=== PATIENT | female | born 1970 | race Caucasian/White ===

== ENCOUNTER → 2017-04-10 | Outpatient (CLI) | payer MEDICARE, OTHER ==
[2016-03-05 12:18] VITALS: BP 146/84
[~2017-04-10] MED LIST: ALBU2.5V14 NEB; AMLO5TAB2 PO; CARB200T PO; CLON0.5T PO; CLON1TAB PO; DIPH25CA58 IV; FERR-26 PO; FLUO40CA9 PO; FLUT12AE IH; HYDR25TA9 PO; IPRA3AMP IH; LEVO500T8 PO; LISI20TA PO; LOPE2TAB27 PO; MAGN64TA6 PO; MERO1VIA IV; METF500T PO; MONT10TA9 PO; MULT-246 PO; NAPR-683 PO; OLAN5TAB9 PO; PHEN177S52 MM; POTASSIUM CHLO10 MEQ PO; SIMV20TA3 PO; SUMA50TA3 PO; VANC1.752 IV; VENTOLIN HFA18 GM INH
--- NOTE | 2017-04-10 14:39 | RAD ---
Ultrasound-guided right thyroid biopsy, 03/12/2017: History: Multinodular thyroid gland An outside thyroid ultrasound exam demonstrated a heterogeneous multinodular gland. We targeted the dominant, faintly hypoechoic nodule seen anterolaterally in the upper pole of the right lobe of the gland on the outside study. Biopsy of the smaller nodules would be problematic due to their size and the thickness of this patient's neck. Depending on the results of this procedure, sonographic surveillance is again suggested to established stability of these nodules. Under local anesthesia, aseptic conditions and sonographic guidance a 25-gauge needle was passed into this hypoechoic area via an anteromedial approach. 4 separate aspirates were obtained in this manner. The pathology results are pending. The patient tolerated the procedure well and left the department in good condition.
--- NOTE | 2017-04-14 13:38 | PATHOLOGY ---
CYTOPATHOLOGY REPORT CLINICAL HISTORY: Thyroid nodule SPECIMEN(S) RECEIVED: A.Fine needle aspiration, Right thyroid nodule FINAL DIAGNOSIS: Right thyroid nodule fine needle aspiration, smears and cell block: - [place] category: Benign. - Clusters of follicular epithelial cells, hemosiderin laden macrophages, colloid, and blood identified. COMMENT: The findings are consistent with an adenomatous nodule. (JPM:mgr; 04/14/2017) PATHOLOGIST: Ricky Broussard M.D. REPORT ELECTRONICALLY SIGNED BY: Ricky Broussard M.D. DATE/TIME: 04/14/2017 13:36 GROSS PATHOLOGY: A. Fine needle aspiration, Right thyroid nodule: The specimen is labeled "Sherly Geronimo" and consists of four fixed slides, three air dried slides, four H and E slides. Thirty mL of clear cloudy pink fluid in fixative from the needle rinse is also submitted and one ThinPrep slide and an alcohol fixed cell block were prepared from this material. ([id number]) RIG MECHANIC(S): HEATHER Waters([facility]) INITIAL CPT CODE(S): A; 15385, 90725 Professional services performed by [facility] [place] [address] Technical services performed by [facility] at [address] [place] [address], [address], [place] [address]. PATIENT: SHERLY GERONIMO /AGE: 801/08/1970 (Age: 47) SEX: F PATIENT #: [id number] ALT CASE #: SPECIMEN COLLECTION DATE: 04/10/2017 SPECIMEN RECEIVED DATE: 04/13/[address] [facility] [address] [place] [address], [address] [place] [address] PHONE: [phone] DIRECTOR: Johnny Hernandez M.D. * * * END OF REPORT * * *
== END | disposition home or self-care (01) ==
LOC: US 13:07
PROVIDERS: ATTEND Family Medicine
DX: E04.2 Nontoxic multinodular goiter (principal)
CPT/HCPCS: 76942; 88173; 88305

== ENCOUNTER → 2017-05-15 | Outpatient (CLI) | payer MEDICARE, OTHER | END | disposition home or self-care (01) | LOC: KCIC MRI 09:55 | DX: M48.061 Spinal stenosis, lumbar region without neurogenic claudication (principal); M43.16 Spondylolisthesis, lumbar region; M51.37 Other intervertebral disc degeneration, lumbosacral region; M25.78 Osteophyte, vertebrae; R60.0 Localized edema; R20.0 Anesthesia of skin | CPT/HCPCS: 72148 ==

== ENCOUNTER → 2017-06-03 | Outpatient (CLI) | payer MEDICARE, OTHER | END | disposition home or self-care (01) | LOC: PNCL 09:31 | DX: M51.36 Other intervertebral disc degeneration, lumbar region (principal); M99.83 Other biomechanical lesions of lumbar region; M41.86 Other forms of scoliosis, lumbar region; E11.9 Type 2 diabetes mellitus without complications; E78.00 Pure hypercholesterolemia, unspecified; F32.9 Major depressive disorder, single episode, unspecified; I10 Essential (primary) hypertension; K21.9 Gastro-esophageal reflux disease without esophagitis; Z79.4 Long term (current) use of insulin; Z83.3 Family history of diabetes mellitus | CPT/HCPCS: G0463 ==

== ENCOUNTER → 2017-06-04 | Outpatient (CLI) | payer MEDICARE, OTHER | END | disposition home or self-care (01) | LOC: RAD 14:18 | DX: M43.16 Spondylolisthesis, lumbar region (principal) | CPT/HCPCS: 72120 ==

== ENCOUNTER → 2017-06-09 | Outpatient (CLI) | payer MEDICARE, OTHER ==
[~2017-06-09] MED LIST changes: -ALBU2.5V14 NEB; -AMLO5TAB2 PO; -CARB200T PO; -CLON0.5T PO; -CLON1TAB PO; -DIPH25CA58 IV; -FERR-26 PO; -FLUO40CA9 PO; -FLUT12AE IH; -HYDR25TA9 PO; +IOHEXOL 180 MG/ML 10 ML VIAL.; -IPRA3AMP IH; -LEVO500T8 PO; -LISI20TA PO; -LOPE2TAB27 PO; -MAGN64TA6 PO; -MERO1VIA IV; -METF500T PO; -MONT10TA9 PO; -MULT-246 PO; -NAPR-683 PO; -OLAN5TAB9 PO; -PHEN177S52 MM; -POTASSIUM CHLO10 MEQ PO; -SIMV20TA3 PO; -SUMA50TA3 PO; -VANC1.752 IV; -VENTOLIN HFA18 GM INH; +methylPREDNISolone ACETATE 40 MG/ML VIAL.; +methylPREDNISolone ACETATE 80 MG/ML VIAL.
== END | disposition home or self-care (01) ==
LOC: PNCL 09:38
DX: M51.16 Intervertebral disc disorders with radiculopathy, lumbar region (principal); M48.061 Spinal stenosis, lumbar region without neurogenic claudication; I10 Essential (primary) hypertension; K21.9 Gastro-esophageal reflux disease without esophagitis; E11.9 Type 2 diabetes mellitus without complications; F32.9 Major depressive disorder, single episode, unspecified; Z88.1 Allergy status to other antibiotic agents; Z86.69 Personal history of other diseases of the nervous system and sense organs; Z86.39 Personal history of other endocrine, nutritional and metabolic disease; Z87.01 Personal history of pneumonia (recurrent); Z88.8 Allergy status to other drugs, medicaments and biological substances; Z91.048 Other nonmedicinal substance allergy status
CPT/HCPCS: 62323; J1030; J1040

== ENCOUNTER → 2017-07-13 | Outpatient (CLI) | payer MEDICARE, OTHER | LOC: PNCL 09:11 | DX: M51.16 Intervertebral disc disorders with radiculopathy, lumbar region (principal); M48.061 Spinal stenosis, lumbar region without neurogenic claudication; I10 Essential (primary) hypertension; G47.39 Other sleep apnea; E11.9 Type 2 diabetes mellitus without complications; F32.9 Major depressive disorder, single episode, unspecified; F41.9 Anxiety disorder, unspecified; Z87.891 Personal history of nicotine dependence; Z87.01 Personal history of pneumonia (recurrent); Z88.6 Allergy status to analgesic agent; Z88.1 Allergy status to other antibiotic agents; Z88.8 Allergy status to other drugs, medicaments and biological substances | CPT/HCPCS: 62323; J1030; J1040; Q9965 ==

== ENCOUNTER → 2017-08-27 | Outpatient (CLI) | payer MEDICARE, OTHER | LOC: PNCL 10:11 | DX: M51.16 Intervertebral disc disorders with radiculopathy, lumbar region (principal); M48.061 Spinal stenosis, lumbar region without neurogenic claudication | CPT/HCPCS: 62323; J1030; J1040; Q9965 ==